=== PATIENT | male | born 1960 | race Caucasian/White ===

== ENCOUNTER → 2017-05-22 | Outpatient (CLI) | payer OTHER ==
--- NOTE | 2017-05-22 11:37 | RADIOLOGY REPORT (SQ) ---
EXAM DESCRIPTION: CT ABD/PELVIS WITH IV ONLY COMPLETED DATE/TIME: 05/22/2017 11:11 am REASON FOR STUDY: COLON CA C18.2 MALIGNANT NEOPLASM OF ASCENDING COLON COMPARISON: None. TECHNIQUE: CT scan of the abdomen and pelvis performed with intravenous and oral contrast using jaleesa juan scanning technique with dynamic intravenous contrast injection. Images reviewed with lung, soft t issue, and bone windows. Reconstructed coronal and sagittal MPR images reviewed. Delayed images for e valuation of the urinary system also acquired. All images stored on PACS. All CT scanners at this facility use dose modulation, iterative reconstruction, and/or weight based d osing when appropriate to reduce radiation dose to as low as reasonably achievable (ALARA). [facility]: Dose Right [facility]: CareDose [facility]: Dose Right [facility]: Teradose 4D [facility]: Materia CONTRAST TYPE AND DOSE: contrast/concentration: Isovue 370.00 mg/ml; Total Contrast Delivered: 91.0 ml; Total Saline Delivered: 70.0 ml RENAL FUNCTION: Creatinine 1 BUN 16 RADIATION DOSE: Up-to-date CT equipment and radiation dose reduction techniques were employed. CTDIv ol: 8.8 - 10.4 mGy. DLP: 1032 mGy-cm.. LIMITATIONS: None. FINDINGS: LOWER CHEST: No nodules or infiltrates. There is localized eventration of the right hemid iaphragm posteriorly containing fat. LIVER: There are surgical changes in the right lobe of the liver. No hepatic masses are seen. SPLEEN: Normal size. No focal lesions. PANCREAS: No masses. No significant calcifications. No adjacent inflammation or peripancreatic fluid collections. Pancreatic duct not dilated. GALLBLADDER: Surgically absent. ADRENAL GLANDS: No significant masses or asymmetry. RIGHT KIDNEY AND URETER: No solid masses. There is a nonobstructing intrarenal calculus in the lower pole. There is no hydronephrosis or hydroureter LEFT KIDNEY AND URETER: No solid masses. There are several nonobstructing intrarenal calculi includi ng an 8 mm upper calyceal calculus. There is no hydronephrosis or hydroureter. AORTA AND VESSELS: No aneurysm. No dissection. Renal arteries, SMA, celiac without stenosis. RETROPERITONEUM: No retroperitoneal adenopathy, hemorrhage or masses. BOWEL AND PERITONEAL CAVITY: Right colectomy changes are present. Surgical changes are present in th e stomach. APPENDIX: Surgically absent. PELVIS: The urinary bladder is normal. The prostate gland and seminal vesicles are unremarkable. ABDOMINAL WALL: There is what appears to be a prior ostomy site on the right. BONES: No metastases are seen. OTHER: None. IMPRESSION: 1. Right colectomy changes with apparent surgical changes the liver and in the stomach. 2. Nonobstructing intrarenal calculi as described. 3. There is no evidence of recurrence or metastasis. 4. There is eventration of right hemidiaphragm posteriorly, likely related to surgery. TECHNICAL DOCUMENTATION: JOB ID: [id number] Quality ID # [id number]: Final reports with documentation of one or more dose reduction techniques (e.g., Au tomated exposure control, adjustment of the mA and/or kV according to patient size, use of iterative reconstruction technique) 2010 [employer] All Rights Reserved
== END ==
LOC: RAD 10:07
PROVIDERS: ATTEND Internal Medicine
DX: C18.2 Malignant neoplasm of ascending colon (principal)
CPT/HCPCS: 74177

== ENCOUNTER → 2017-08-11 | Outpatient (CLI) | payer OTHER ==
--- NOTE | 2017-08-11 12:09 | RADIOLOGY REPORT (SQ) ---
EXAM DESCRIPTION: CT CHEST WITH; CT ABD/PELVIS WITH IV ONLY COMPLETED DATE/TIME: 08/11/2017 10:14 am REASON FOR STUDY: COLON CA (C18.2) C18.2 MALIGNANT NEOPLASM OF ASCENDING COLON CONTRAST TYPE AND DOSE: contrast/concentration: Isovue 370.00 mg/ml; Total Contrast Delivered: 90.0 ml; Total Saline Delivered: 70.0 ml RENAL FUNCTION: Creatinine 1 BUN 17 COMPARISON: CT abdomen and pelvis 05/22/2017 TECHNIQUE: CT scan of the chest performed using helical scanning technique with dynamic intravenous contrast injection. Images reviewed with lung, soft tissue and bone windows. Reconstructed coronal a nd sagittal MPR images reviewed. All images stored on PACS. All CT scanners at this facility use dose modulation, iterative reconstruction, and/or weight based d osing when appropriate to reduce radiation dose to as low as reasonably achievable (ALARA). [facility]: Dose Right [facility]: CareDose [facility]: Dose Right [facility]: Teradose 4D [facility]: PeopleMatter RADIATION DOSE: Up-to-date CT equipment and radiation dose reduction techniques were employed. CTDIv ol: 6.9 - 8.8 mGy. DLP: 1243 mGy-cm.. LIMITATIONS: None. FINDINGS: AXILLAE: No adenopathy. CHEST WALL: No masses. No subcutaneous air. LUNGS: Subsegmental atelectasis in the lingula. PLEURA: No effusion. No calcifications. There is a localized eventration right hemidiaphragm wire lather iorly that contains only fat. THYROID: No masses or significant asymmetry. HILAR AND MEDIASTINAL STRUCTURES: No identified masses or abnormal nodes. AORTA AND GREAT VESSELS: No aneurysm. No dissection. PULMONARY ARTERIES: No identified pulmonary emboli. Study not optimized for the pulmonary arteries. HEART: No pericardial effusion. HARDWARE AND LIFELINES: None. BONES: Thoracic spondylosis. No osseous metastases are suggested. OTHER: No other significant finding. IMPRESSION: 1. There is no evidence of metastatic disease in the chest. 2. Mild subsegmental atelectasis. 3. Thoracic spondylosis. COMPARISON: 05/22/2017 RADIATION DOSE: Up-to-date CT equipment and radiation dose reduction techniques were employed. CTDIv ol: 6.9 - 8.8 mGy. DLP: 1243 mGy-cm.mGy. TECHNIQUE: CT scan of the abdomen and pelvis performed with intravenous and oral contrast using jaleesa juan scanning technique with dynamic intravenous contrast injection. Images reviewed with lung, soft tissue and bone windows. Reconstructed coronal and sagittal MPR images reviewed. Delayed images for evaluation of the urinary system also acquired and evaluated. All images stored on PACS. All CT scanners at this facility use dose modulation, iterative reconstruction, and/or weight based d osing when appropriate to reduce radiation dose to as low as reasonably achievable (ALARA). [facility]: Dose Right [facility]: SureCare [facility]: Dose Right [facility]: Teradose 4D [facility]: PeopleMatter FINDINGS: LIVER: There is an ill-defined 3 cm area of decreased attenuation in the posterior aspect of the right lobe of the liver near the suture line. This appears to represent a change. This is se en on image 45 series 2 and on the sagittal series image 18. The liver is otherwise unremarkable. SPLEEN: Normal size. No focal lesions. PANCREAS: No significant abnormality GALLBLADDER: Not identified. ADRENAL GLANDS: Questionable 15 mm right adrenal nodule see image 20 series 3. RIGHT KIDNEY AND URETER: Normal size. No solid or suspicious masses. No significant calcifications. No hydronephrosis or hydroureter. LEFT KIDNEY AND URETER: Normal size. No solid or suspicious masses nonobstructing intrarenal calculi in the lower calices. No hydronephrosis or hydroureter AORTA AND VESSELS: No aneurysm. No dissection. Renal arteries, SMA, celiac without stenosis. RETROPERITONEUM: No retroperitoneal adenopathy, hemorrhage or masses. LARGE AND SMALL BOWEL: Surgical changes stomach. Partial colectomy. APPENDIX: Not identified. ABDOMINAL WALL: No hernia or masses. PERITONEAL CAVITY: No free air. No free fluid. No peritoneal implants or masses. PELVIS: No mass or free fluid. Normal bladder. BONES: Lower lumbar degenerative disc changes and spondylosis OTHER: No other significant finding. IMPRESSION: 1. There is an ill-defined area of decreased attenuation in the posterior aspect of the right lobe liver near the suture lie. This appears to represent a change. Cannot exclude recurrent or metastatic disease. 2. Right adrenal nodule that appears to be new. 3. Nonobstructing renal calculi. 4. Osseous findings as described. There are no osseous metastases. TECHNICAL DOCUMENTATION: JOB ID: [id number] Quality ID # 436: Final reports with documentation of one or more dose reduction techniques (e.g., Au tomated exposure control, adjustment of the mA and/or kV according to patient size, use of iterative reconstruction technique) 2010 [employer]- All Rights Reserved
--- NOTE | 2017-08-11 12:09 | RADIOLOGY REPORT (SQ) ---
EXAM DESCRIPTION: CT CHEST WITH; CT ABD/PELVIS WITH IV ONLY COMPLETED DATE/TIME: 08/11/2017 10:14 am REASON FOR STUDY: COLON CA (C18.2) C18.2 MALIGNANT NEOPLASM OF ASCENDING COLON CONTRAST TYPE AND DOSE: contrast/concentration: Isovue 370.00 mg/ml; Total Contrast Delivered: 90.0 ml; Total Saline Delivered: 70.0 ml RENAL FUNCTION: Creatinine 1 BUN 17 COMPARISON: CT abdomen and pelvis 05/22/2017 TECHNIQUE: CT scan of the chest performed using helical scanning technique with dynamic intravenous contrast injection. Images reviewed with lung, soft tissue and bone windows. Reconstructed coronal a nd sagittal MPR images reviewed. All images stored on PACS. All CT scanners at this facility use dose modulation, iterative reconstruction, and/or weight based d osing when appropriate to reduce radiation dose to as low as reasonably achievable (ALARA). [facility]: Dose Right [facility]: CareDose [facility]: Dose Right [facility]: Teradose 4D [facility]: RuffaloCODY RADIATION DOSE: Up-to-date CT equipment and radiation dose reduction techniques were employed. CTDIv ol: 6.9 - 8.8 mGy. DLP: 1243 mGy-cm.. LIMITATIONS: None. FINDINGS: AXILLAE: No adenopathy. CHEST WALL: No masses. No subcutaneous air. LUNGS: Subsegmental atelectasis in the lingula. PLEURA: No effusion. No calcifications. There is a localized eventration right hemidiaphragm brim buster iorly that contains only fat. THYROID: No masses or significant asymmetry. HILAR AND MEDIASTINAL STRUCTURES: No identified masses or abnormal nodes. AORTA AND GREAT VESSELS: No aneurysm. No dissection. PULMONARY ARTERIES: No identified pulmonary emboli. Study not optimized for the pulmonary arteries. HEART: No pericardial effusion. HARDWARE AND LIFELINES: None. BONES: Thoracic spondylosis. No osseous metastases are suggested. OTHER: No other significant finding. IMPRESSION: 1. There is no evidence of metastatic disease in the chest. 2. Mild subsegmental atelectasis. 3. Thoracic spondylosis. COMPARISON: 05/22/2017 RADIATION DOSE: Up-to-date CT equipment and radiation dose reduction techniques were employed. CTDIv ol: 6.9 - 8.8 mGy. DLP: 1243 mGy-cm.mGy. TECHNIQUE: CT scan of the abdomen and pelvis performed with intravenous and oral contrast using jaleesa juan scanning technique with dynamic intravenous contrast injection. Images reviewed with lung, soft tissue and bone windows. Reconstructed coronal and sagittal MPR images reviewed. Delayed images for evaluation of the urinary system also acquired and evaluated. All images stored on PACS. All CT scanners at this facility use dose modulation, iterative reconstruction, and/or weight based d osing when appropriate to reduce radiation dose to as low as reasonably achievable (ALARA). [facility]: Dose Right [facility]: SureCare [facility]: Dose Right [facility]: Teradose 4D [facility]: RuffaloCODY FINDINGS: LIVER: There is an ill-defined 3 cm area of decreased attenuation in the posterior aspect of the right lobe of the liver near the suture line. This appears to represent a change. This is se en on image 45 series 2 and on the sagittal series image 18. The liver is otherwise unremarkable. SPLEEN: Normal size. No focal lesions. PANCREAS: No significant abnormality GALLBLADDER: Not identified. ADRENAL GLANDS: Questionable 15 mm right adrenal nodule see image 20 series 3. RIGHT KIDNEY AND URETER: Normal size. No solid or suspicious masses. No significant calcifications. No hydronephrosis or hydroureter. LEFT KIDNEY AND URETER: Normal size. No solid or suspicious masses nonobstructing intrarenal calculi in the lower calices. No hydronephrosis or hydroureter AORTA AND VESSELS: No aneurysm. No dissection. Renal arteries, SMA, celiac without stenosis. RETROPERITONEUM: No retroperitoneal adenopathy, hemorrhage or masses. LARGE AND SMALL BOWEL: Surgical changes stomach. Partial colectomy. APPENDIX: Not identified. ABDOMINAL WALL: No hernia or masses. PERITONEAL CAVITY: No free air. No free fluid. No peritoneal implants or masses. PELVIS: No mass or free fluid. Normal bladder. BONES: Lower lumbar degenerative disc changes and spondylosis OTHER: No other significant finding. IMPRESSION: 1. There is an ill-defined area of decreased attenuation in the posterior aspect of the right lobe liver near the suture lie. This appears to represent a change. Cannot exclude recurrent or metastatic disease. 2. Right adrenal nodule that appears to be new. 3. Nonobstructing renal calculi. 4. Osseous findings as described. There are no osseous metastases. TECHNICAL DOCUMENTATION: JOB ID: [id number] Quality ID # 436: Final reports with documentation of one or more dose reduction techniques (e.g., Au tomated exposure control, adjustment of the mA and/or kV according to patient size, use of iterative reconstruction technique) 2010 [employer]- All Rights Reserved
== END ==
LOC: RAD 09:31
PROVIDERS: ATTEND Internal Medicine
DX: C18.2 Malignant neoplasm of ascending colon (principal)
CPT/HCPCS: 71260; 74177

== ENCOUNTER → 2017-08-22 | Outpatient (CLI) | payer OTHER ==
--- NOTE | 2017-08-23 11:12 | RADIOLOGY REPORT (SQ) ---
EXAM DESCRIPTION: PET CT SKULL/THIGH COMPLETED DATE/TIME: 08/22/2017 9:04 pm REASON FOR STUDY: C18.2 MALIGNANT NEOPLASM OF ASCENDING COLON C18.2 MALIGNANT NEOPLASM OF ASCENDING COLON COMPARISON: CT chest abdomen pelvis 08/11/2017 CT angio chest 05/22/2017 RADIONUCLIDE AND DOSE: 11.1 mCi F18 FDG The route of agent administration: Intravenous FASTING BLOOD SUGAR: 76 mg/dl CONTRAST TYPE AND DOSE: No CT contrast given. TECHNIQUE: Blood glucose level was verified. Above dose of FDG was injected intravenously. 2-D seg mented attenuation correction images were obtained from the base of the skull to the midthighs. Nonc ontrast CT images were obtained for attenuation correction and fusion with emission images. CT image s were performed without oral or intravenous contrast and are not sensitive for parenchymal lesions. A series of overlapping emission PET images were obtained. Images reviewed and manipulated at [facility] work station by the radiologist. Images stored on PACS. LIMITATIONS: None. FINDINGS: HEAD AND NECK: No areas of abnormal metabolic activity in the soft tissues of the head and neck. CHEST: No areas of abnormal metabolic activity in the chest. ABDOMEN AND PELVIS: Patient is post resection of a portion of the right lobe liver for metastatic col on cancer. Just ventral to the staple line, a 4.5 x 4 cm hypodense mass is present on axial image 10 8 with a peripheral rim of increased metabolic activity, SUV 8.7. Chest under the right hemidiaphragm, of a 2 cm area of decreased attenuation present in the right lob e liver sub- diaphragmatic surface image 98. This has SUV of 3.0 and is worrisome for a second small er area of recurrence. Consider liver MRI for further characterization. There is bandlike increased uptake along the right hemicolectomy staple line with SUV of 5.9. No wel l-circumscribed mass. This may be physiologic rather than tumor recurrence along the right colon. PROXIMAL LOWER EXTREMITIES: No areas of abnormal metabolic activity in the soft tissues of the lower extremities. BONES: No abnormal metabolic activity in the visualized skeleton. ADDITIONAL CT FINDINGS: Left maxillary sinus mucus or serous retention cysts. Surgical clips post ga stric bypass, resection right posterior lobe liver, and right partial colectomy. Post cholecystectom y. Cervical spine fusion. Gynecomastia. Bandlike scarring or atelectasis in the lingula unchanged from CT chest 08/11/2017 OTHER: Liver background activity SUV 2.1. Blood pool background activity SUV 1.3 IMPRESSION: Soft tissue mass along the right lobe liver staple line hypermetabolic worrisome for billy or recurrence. A smaller area of increased liver metabolic activity is present in the right lobe liver subdiaphragma tic surface. MRI of of the liver would be useful for further characterization of this finding TECHNICAL DOCUMENTATION: JOB ID: [id number] [employer]- All Rights Reserved
== END ==
LOC: RAD 15:32
PROVIDERS: ATTEND Internal Medicine
DX: C18.2 Malignant neoplasm of ascending colon (principal)
CPT/HCPCS: 78815; A9552

== ENCOUNTER 2017-09-07 09:29 | Inpatient (IN) | payer OTHER ==
--- NOTE | 2017-09-07 09:37 | ER Document Report ---
ED General - General Chief Complaint: Altered Mental Status Stated Complaint: WEAKNESS Time Seen by Provider: 09/07/17 09:32 Notes: 57-year-old male with a history of recurrent colon cancer not on chemotherapy, a patient of Dr. Parker, who is brought in by EMS last seen normal last night woke up with altered mental status only able to say his name. Per EMS nonfocal but depressed mental status. Vital signs normal. Hypothermic. Patient cannot give a history. He was recently started on pain medication but appears to be taking a normal amount of this. Paramedics did not see any lateralizing neuro deficits and the blood sugar was normal. There is no other information available at this time. TRAVEL OUTSIDE OF THE [place] IN LAST 30 DAYS: No - Related Data Allergies/Adverse Reactions: No Known Allergies Allergy (Verified 09/07/17 12:26) Home Medications: Current Home Medications Ondansetron HCl [Zofran 8 mg Tablet] 8 mg PO Q8HP PRN 09/07/17 [History] Oxycodone HCl [Oxy-Ir 5 mg Tablet] 5 mg PO Q4HP PRN 09/07/17 [History] Pantoprazole Sodium [Protonix] 40 mg PO DAILY 09/07/17 [History] Potassium Chloride [Klor-Con 10 Meq Tablet.sa] 40 meq PO DAILY 09/07/17 [History ] Tamsulosin HCl [Flomax 0.4 mg Cap.sr] 0.4 mg PO DAILY 09/07/17 [History] Past Medical History - General Information source: Emergency Med Personnel - Social History Smoking Status: Former Smoker Family History: None Review of Systems - Review of Systems Notes: REVIEW OF SYSTEMS Unable to obtain secondary to mental status PHYSICAL EXAMINATION General: Appears in distress, staring off Head: Atraumatic, normocephalic ENT: Mouth normal, oropharynx moist, no exudates or tonsillar enlargement Eyes: Conjunctiva mildly injected on the right, query proptosis, pupils equal, lids normal. Positive blink to threat bilaterally Neck: No JVD, supple, no guarding CVS: Normal rate, regular rhythm, no murmurs Resp: No resp distress, equal and normal breath sounds bilaterally GI: Nondistended, soft, no tenderness to palpation, no rebound or guarding. Multiple healed abdominal incisions. Ext: No deformities, no edema, normal range of motion in upper and lower ext Back: No CVA or midline TTP Skin: No rash, warm Lymphatic: No lymphadeopathy noted Neuro: Awake, alert. Face symmetric. Oriented to name only. Answers all questions using only his name. Does not follow commands. Resists IV placement monitor placement strongly with all 4 extremities. Slightly increased muscle tone. Fasciculations. Physical Exam - Vital signs Vitals: Resp Pulse Ox 26 H 99 09/07/17 09:34 09/07/17 09:34 Course - Re-evaluation Re-evalutation: 09/07/17 09:35 Critically ill patient seen immediately by me on arrival. Altered mental status in the setting of known colon cancer. Normal glucose and vital signs except for hypothermia. Differential includes hypothermia, hypothyroid, sepsis , brain metastases with edema, hepatic encephalopathy, other metabolic encephalopathy, med effect. Patient will get a stat CT scan and basic labs including sepsis workup. We will withhold antibiotics for now but strongly consider giving them if I find no other reason for his mental status changes. I considered nonconvulsive status epilepticus however the patient is able to respond to my questions. He has no lateralizing deficits concerning for an acute stroke. 09/07/17 10:33 Reassessed at 10:30 AM. Still altered but slightly better. My read of the head CT shows no major issues or bleeding. Labs are returning, and they all look normal. Ammonia pending. Will go for admission. 09/07/17 10:54 Labs show slightly low platelets otherwise normal including LFTs. Ammonia is pending. Urine is pending. At this time is still no sign of infection given normal chest x-ray. His head CT looks normal. I reassessed him at 1055 and he is slightly more awake now oriented to place but still far from his baseline. He was discussed with Dr. Arce from hospitalist service who will admit. 09/07/17 11:43 Patient's ammonia is elevated. Ordered lactulose. Urine is negative, doubt infection. - Vital Signs Vital signs: Temp Pulse Resp BP Pulse Ox 99.2 F 22 H 137/69 H 96 09/07/17 15:01 09/07/17 15:01 09/07/17 15:01 09/07/17 15:01 - Laboratory Result Diagrams: 09/07/17 09:34 09/07/17 09:34 Laboratory results interpreted by me: 09/07/17 09/07/17 09/07/17 09:34 09:34 09:52 RBC 4.12 L Plt Count 90 L Seg Neutrophils % 81.3 H Lymphocytes % 11.4 L Chloride 113 H Carbon Dioxide 16 L Glucose 121 H Total Bilirubin 3.5 H Direct Bilirubin 0.9 H Alkaline Phosphatase 271 H Ammonia 137.9 H Urine Ketones 09/07/17 10:45 RBC Plt Count Seg Neutrophils % Lymphocytes % Chloride Carbon Dioxide Glucose Total Bilirubin Direct Bilirubin Alkaline Phosphatase Ammonia Urine Ketones 20 H - Diagnostic Test Radiology reviewed: Image reviewed, Reports reviewed - EKG Interpretation by Me EKG shows normal: Sinus rhythm Rate: Normal Rhythm: APC's When compared to previous EKG there are: Previous EKG unavailable - No ST or T- wave changes Critical Care Note - Critical Care Note Total time excluding time spent on procedures (mins): 40 Comments: The above patient is critically ill. Not including procedures, but including direct re-evaluations, speaking with patient and/or consultants, interpreting results, and documenting, I spent the total amount of minute listed listed above on critical care time Discharge - Discharge Clinical Impression: Acute encephalopathy Clinical Impression: (Ruled Out): Encephalopathy Condition: Fair Disposition: ADMITTED INPATIENT Admitting Provider: Hospitalist Unit Admitted: Medical Floor
[2017-09-07 09:58] LABS: ABSOLUTE EOSINOPHILS # (AUTO) 0.1 10^3/uL (0.0-0.6); ABSOLUTE LYMPHOCYTES (AUTO) 0.9 10^3/uL (0.5-4.7); ABSOLUTE MONOCYTES (AUTO) 0.4 10^3/uL (0.1-1.4); ABSOLUTE NEUT (AUTO) 6.1 10^3/uL (1.7-8.2); BASOPHILS % (AUTO) 0.3 % (0-2); HEMATOCRIT 39.5 % (37.9-51.0); HEMOGLOBIN 13.5 g/dL (13.5-17.0); LYMPHOCYTES % (AUTO) 11.4 % (13-45); MEAN CORPUSCULAR HEMOGLOBIN 32.6 pg (27.0-33.4); MEAN CORPUSCULAR HGB CONC 34.1 g/dL (32.0-36.0); MEAN CORPUSCULAR VOLUME 96 fl (80-97); RED BLOOD COUNT 4.12 10^6/uL (4.35-5.55); RED CELL DISTRIBUTION WIDTH 13.8 % (11.5-14.0); SEGMENTED NEUTROPHILS % (AUTO) 81.3 % (42-78); WHITE BLOOD COUNT 7.5 10^3/uL (4.0-10.5)
[2017-09-07 10:20] LABS: ALANINE AMINOTRANSFERASE 52 U/L (21-72); ALBUMIN 4.1 g/dL (3.5-5.0); ALKALINE PHOSPHATASE 271 U/L (38-126); ANION GAP 15 (5-19); ASPARTATE AMINO TRANSFERASE 47 U/L (17-59); BILIRUBIN,DIRECT 0.9 mg/dL (0.0-0.4); BILIRUBIN,TOTAL 3.5 mg/dL (0.2-1.3); BLOOD UREA NITROGEN 16 mg/dL (7-20); CALCIUM 9.1 mg/dL (8.4-10.2); CARBON DIOXIDE 16 mmol/L (22-30); CHLORIDE 113 mmol/L (98-107); CREATININE RESULT 0.98 mg/dL (0.52-1.25); GLUCOSE 121 mg/dL (75-110); SODIUM 144.4 mmol/L (137-145); TOTAL PROTEIN 7.4 g/dL (6.3-8.2)
--- NOTE | 2017-09-07 10:34 | RADIOLOGY REPORT (SQ) ---
EXAM DESCRIPTION: CHEST SINGLE VIEW COMPLETED DATE/TIME: 09/07/2017 10:22 am REASON FOR STUDY: AMS r/o infilt COMPARISON: None. EXAM PARAMETERS: NUMBER OF VIEWS: One view. TECHNIQUE: Single frontal radiographic view of the chest acquired. RADIATION DOSE: NA LIMITATIONS: None. FINDINGS: LUNGS AND PLEURA: Low lung volumes. Faint basilar densities, atelectasis versus infiltrat e. No pleural effusion. No pneumothorax. MEDIASTINUM AND HILAR STRUCTURES: No masses. Contour normal. HEART AND VASCULAR STRUCTURES: Heart normal in size. Normal vasculature. BONES: No acute findings. HARDWARE: Hardware in the spine. OTHER: No other significant finding. IMPRESSION: LOW LUNG VOLUMES. FAINT BASILAR DENSITIES SECONDARY TO ATELECTASIS VERSUS INFILTRATE. TECHNICAL DOCUMENTATION: JOB ID: [id number] [employer]- All Rights Reserved
--- NOTE | 2017-09-07 11:17 | RADIOLOGY REPORT (SQ) ---
EXAM DESCRIPTION: CT HEAD WITHOUT COMPLETED DATE/TIME: 09/07/2017 10:57 am REASON FOR STUDY: CA, AMS, r/o mets/edema COMPARISON: None. TECHNIQUE: Axial images acquired through the brain without intravenous contrast. Images reviewed wi th bone, brain and subdural windows. Images stored on PACS. All CT scanners at this facility use dose modulation, iterative reconstruction, and/or weight based d osing when appropriate to reduce radiation dose to as low as reasonably achievable (ALARA). [facility]: Dose Right [facility]: CareDose [facility]: Dose Right [facility]: Teradose 4D [facility]: Netasq RADIATION DOSE: CT Rad equipment meets quality standard of care and radiation dose reduction techniq ues were employed. CTDIvol: 49.0 mGy. DLP: 1566 mGy-cm. mGy. LIMITATIONS: None. FINDINGS: VENTRICLES: Normal size and contour. CEREBRUM: No masses. No hemorrhage. No midline shift. No evidence for acute infarction. Normal gra y/white matter differentiation. No areas of low density in the white matter. CEREBELLUM: No masses. No hemorrhage. No alteration of density. No evidence for acute infarction. EXTRAAXIAL SPACES: No fluid collections. No masses. ORBITS AND GLOBE: No intra- or extraconal masses. Normal contour of globe without masses. CALVARIUM: No fracture. PARANASAL SINUSES: Mucous retention cysts are present in the left maxillary sinus. SOFT TISSUES: No mass or hematoma. OTHER: No other significant finding. IMPRESSION: Left maxillary sinus disease with no acute intracranial findings. There is no evidence of metastases in the brain. EVIDENCE OF ACUTE STROKE: NO. COMMENT: Quality ID # [id number]: Final reports with documentation of one or more dose reduction techniques (e.g., Automated exposure control, adjustment of the mA and/or kV according to patient size, use of iterative reconstruction technique) TECHNICAL DOCUMENTATION: JOB ID: [id number] [employer]- All Rights Reserved
[2017-09-07 11:19] LABS: APPEARANCE,URINE CLEAR; BILIRUBIN,URINE NEGATIVE (NEGATIVE); GLUCOSE, URINE NEGATIVE (NEGATIVE); KETONES,URINE 20 mg/dL (NEGATIVE); LEUKOCYTE ESTERASE,URINE NEGATIVE (NEGATIVE); NITRITE,URINE NEGATIVE (NEGATIVE); PROTEIN,URINE NEGATIVE (NEGATIVE); URINE SPECIFIC GRAVITY 1.023; UROBILINOGEN,URINE NEGATIVE mg/dL (<2.0)
[2017-09-07] MEDS ORDERED: LACTULOSE SYRUP 20 GM/30 ML UDCUP PO ONE (11:43)
[2017-09-07] MEDS ORDERED: DEXTROSE 50%-WATER 25 GM/50 ML DISP.SYRIN IV PRN ×2 (12:12)
[2017-09-07] MEDS ORDERED: ACETAMINOPHEN 325 MG TABLET PO PRN (12:12)
[2017-09-07] MEDS ORDERED: GLUCAGON,HUMAN RECOMB 1 MG INJ SUBCUT PRN (12:12)
[2017-09-07] MEDS ORDERED: DEXTROSE 40% GEL 15 GM TUBE PO PRN ×2 (12:12)
[2017-09-07] MEDS ORDERED: ONDANSETRON 4 MG TAB.RAPDIS PO PRN (12:12)
--- NOTE | 2017-09-07 12:30 | PDOC H&P ---
History of Present Illness Admission Date/PCP: 09/07/17 11:23 ARIAN KASPER MD Patient complains of: Brought in by the because of confusion. History of Present Illness: NATALY NGUYEN is a 57 year old male who has a history of metastatic colon cancer and history of a right sided liver resection who presents with confusion. The patient's reports that he was in his normal state of health yesterday evening when he went to bed. This morning when she tried to wake him he was confused. He was unable to get out of bed because of weakness. At the time my exam the patient is unable to give any history. She reports that he has not had any fevers or chills. He does not drink. He was recently started on pain medication by his oncologist because of worsening abdominal pain. Patient denies any pain but on exam he does have left lower quadrant abdominal pain. He has had had multiple abdominal surgeries including liver resection, cholecystectomy, gastric bypass, and a right partial colectomy. The patient prior to today had been eating normally and had no problems. He has not had any dysuria or other problems. He does not normally use lactulose but he was noted to have an elevated ammonia today. Past Medical History Cardiac Medical History: Reports: None Pulmonary Medical History: Reports: None EENT Medical History: Reports: None Neurological Medical History: Reports: None Endocrine Medical History: Reports: None Renal/ Medical History: Reports: None Malignancy Medical History: Reports: Colorectal Cancer GI Medical History: Reports: Other - Colon cancer that is metastatic to the liver Musculoskeltal Medical History: Reports: None Skin Medical History: Reports: None Psychiatric Medical History: Reports: None Traumatic Medical History: Reports: None Hematology: Reports: None Infectious Medical History: Reports: None Past Surgical History Past Surgical History: Reports: Cholecystectomy, Gastric Bypass Surgery, Orthopedic Surgery - C-spine fusion, Other - Right partial colectomy, right liver resection for metastatic disease Social History Information Source: Relative Lives with: Spouse/Significant other Smoking Status: Never Smoker Frequency of Alcohol Use: None Hx Recreational Drug Use: No Drugs: None Hx Prescription Drug Abuse: No - Advance Directive Resuscitation Status: Full Code Surrogate healthcare decision maker:: Family History Family History: Father is 91 alive and has diabetes and heart disease. Mother is in her late 80s alive and also has diabetes and heart disease. Parental Family History Reviewed: Yes Children Family History Reviewed: No Sibling(s) Family History Reviewed.: No Medication/Allergy Home Medications: Ondansetron HCl [Zofran 8 mg Tablet] 8 mg PO Q8HP PRN 09/07/17 Oxycodone HCl [Oxy-Ir 5 mg Tablet] 5 mg PO Q4HP PRN 09/07/17 Pantoprazole Sodium [Protonix] 40 mg PO DAILY 09/07/17 Potassium Chloride [Klor-Con 10 Meq Tablet.sa] 40 meq PO DAILY 09/07/17 Tamsulosin HCl [Flomax 0.4 mg Cap.sr] 0.4 mg PO DAILY 09/07/17 Review of Systems ROS unobtainable: Due to mental status Physical Exam Vital Signs: Temp Pulse Resp BP Pulse Ox 98.3 F 23 H 146/74 H 99 09/07/17 12:01 09/07/17 12:01 09/07/17 12:01 09/07/17 12:01 General appearance: PRESENT: no acute distress Head exam: PRESENT: atraumatic, normocephalic Eye exam: PRESENT: conjunctiva pink, EOMI, PERRLA. ABSENT: scleral icterus Mouth exam: PRESENT: moist, tongue midline Neck exam: ABSENT: carotid bruit, JVD, lymphadenopathy, thyromegaly Respiratory exam: PRESENT: clear to auscultation yu. ABSENT: rales, rhonchi, wheezes Cardiovascular exam: PRESENT: RRR. ABSENT: diastolic murmur, rubs, systolic murmur Pulses: PRESENT: normal dorsalis pedis pul GI/Abdominal exam: PRESENT: normal bowel sounds, soft, tenderness - Left lower quadrant tenderness. ABSENT: distended, guarding, mass, organolmegaly, rebound Rectal exam: PRESENT: deferred Extremities exam: ABSENT: calf tenderness, clubbing, pedal edema Neurological exam: PRESENT: altered, awake Psychiatric exam: PRESENT: flat affect Skin exam: PRESENT: dry, intact, warm. ABSENT: cyanosis, rash Results Impressions: Chest X-Ray 09/07/17 09:32 IMPRESSION: LOW LUNG VOLUMES. FAINT BASILAR DENSITIES SECONDARY TO ATELECTASIS VERSUS INFILTRATE. Head CT 09/07/17 09:32 IMPRESSION: Left maxillary sinus disease with no acute intracranial findings. There is no evidence of metastases in the brain. EVIDENCE OF ACUTE STROKE: NO. Assessment & Plan - Diagnosis (1) Acute encephalopathy Is this a current diagnosis for this admission?: Yes Plan: The patient has an elevated ammonia and most likely has hepatic encephalopathy as the cause. He has no history of alcohol abuse or liver disease but has had a partial liver resection for metastatic disease. Case was discussed with his oncologist and we will check an LDH and haptoglobin. Will treat with lactulose and monitor closely. Given his left lower quadrant pain I am concerned about the possibility of an intra-abdominal infection although his white count is normal. Will treat with Cipro and Flagyl. (2) Colon cancer Is this a current diagnosis for this admission?: Yes Plan: We will consult oncology. - Time Time Spent: 50 to 70 Minutes - Inpatient Certification Medical Necessity: Need Close Monitoring Due to Risk of Patient Decompensation
--- NOTE | 2017-09-07 12:34 | EKG REPORT ---
SEVERITY:- BORDERLINE ECG - SINUS RHYTHM ATRIAL PREMATURE COMPLEX BORDERLINE T ABNORMALITIES, INFERIOR LEADS : Confirmed by: Farhad Skelton 07-Sep-2017 12:33:42
[2017-09-07] MEDS ORDERED: LIDOCAINE 2% JELLY 5 ML TUBE TOP ONE (12:44)
[2017-09-07] MEDS ORDERED: CIPROFLOXACIN 400 MG/D5W RTU 400 MG/200 ML RTUPB IV ONE (13:30)
[2017-09-07] MEDS: NORMAL SALINE 1000 ML 1,000 ML IV PRN (16:27)
[2017-09-07 16:51] LABS: URINE BARBITURATES SCREEN NEGATIVE; URINE METHADONE SCREEN NEGATIVE; URINE OPIATES LOW NEGATIVE; URINE PHENCYCLIDINE SCREEN NEGATIVE
[2017-09-07] MEDS: METRONIDAZOLE 500 MG/NS RTU 100 ML IV SCH ×2 (16:55→21:55)
[2017-09-07] MEDS: LACTULOSE SYRUP 20 GM/30 ML UDCUP PO SCH (18:30)
[2017-09-07] MEDS ORDERED: LORAZEPAM INJ 2 MG/1 ML VIAL IV ONE (21:00)
[2017-09-07] MEDS: CIPROFLOXACIN 400 MG/D5W RTU 400 MG/200 ML RTUPB IV SCH (23:30)
[2017-09-08] MEDS ORDERED: LORAZEPAM INJ 2 MG/1 ML VIAL IV ONE (00:30)
[2017-09-08] MEDS ORDERED: MORPHINE SULFATE 10 MG/ML INJ IV ONE ×2 (01:00→05:00)
[2017-09-08] MEDS: LACTULOSE SYRUP 20 GM/30 ML UDCUP PO SCH ×5 (03:39→23:32)
[2017-09-08] MEDS: METRONIDAZOLE 500 MG/NS RTU 100 ML IV SCH ×4 (03:42→21:40)
[2017-09-08] MEDS ORDERED: LACTULOSE SYRUP 20 GM/30 ML UDCUP PR ONE (04:15)
[2017-09-08] MEDS ORDERED: LACTULOSE SYRUP 20 GM/30 ML UDCUP ONE (05:11)
--- NOTE | 2017-09-08 07:51 | PDOC CONSULTATION ---
Consultation Consult Date: 09/08/17 Attending physician:: TERRENCE Stokes BUSTEED Consult reason:: Pt w known history of stage IV colon cancer, recent progressive disease with 2 large lesions in the liver, now with hepatic encephalopathy History of Present Illness Admission Date/PCP: 09/07/17 11:23 ARIAN KASPER MD Patient complains of: Brought in with confusion, obtunded History of Present Illness: 57-year-old male well-known to our oncology clinic, he was originally noted about 3-4 years ago with stage II colon cancer, at that time there was a 1.3 cm lesion in the left lobe of the liver, that lesion was attempted to have biopsy, but the biopsy was negative, and ultimately he was watched for some time then lost to follow-up. Then in 2014 he began having abdominal pain, he had imaging done and in the left lobe of liver he now had a 15 cm lesion. He was seen in [place] by the cancer treatment centers of [facility], and initially had induction chemotherapy with XELOX had a good response then had primary liver resection. Unfortunately, after liver resection he had a very complicated course, was in intensive care for nearly 3-4 weeks and then in rehab for about 6 months thereafter. He got back on his feet and post surgery imaging indicated no evidence of disease. He came into our clinic about 6 months ago, and initial imaging done in May showed no evidence of disease. Recently we had imaging done in July, so 3 months from previous imaging, and unfortunately this indicated a 3-4 cm lesion at the resection site. This is followed by PET/CT which now indicated a 6-7 cm lesion at that resection site but another lesion that was about 3 cm as well. Both had SUV uptake. We were then going to recommend reinitiation of salvage chemotherapy with FOLFIRI + AVASTIN, but patient wanted a second opinion, so we did set him up to see Dr. Radha Jason of the [facility] GI oncology program, I also discussed his case personally with her, and I believe she was supposed to see him either this week or next week. He came into our office this past Monday and he was having increased pain in the right upper quadrant, consistent with the progression of disease that he had , we started him on oxycodone, and he seemed to be doing a little bit better until about 24 hours ago, he began becoming confused, and ultimately was very lethargic, he was brought by his here to the ED and he was combative confused, ammonia was 137, bilirubin was 3.5. In our office the bilirubin was in the 2 range. And prior to that in May it was normal. Past Medical History Cardiac Medical History: Reports: None Pulmonary Medical History: Reports: None EENT Medical History: Reports: None Neurological Medical History: Reports: None Endocrine Medical History: Reports: None Renal/ Medical History: Reports: None Malignancy Medical History: Reports: Colorectal Cancer GI Medical History: Reports: Other - Colon cancer that is metastatic to the liver Musculoskeltal Medical History: Reports: None Skin Medical History: Reports: None Psychiatric Medical History: Reports: None Traumatic Medical History: Reports: None Hematology: Reports: None Infectious Medical History: Reports: None Past Surgical History Past Surgical History: Reports: Cholecystectomy, Gastric Bypass Surgery, Orthopedic Surgery - C-spine fusion, Other - Right partial colectomy, right liver resection for metastatic disease Social History Information Source: Relative Lives with: Spouse/Significant other Smoking Status: Never Smoker Frequency of Alcohol Use: None Hx Recreational Drug Use: No Drugs: None Hx Prescription Drug Abuse: No - Advance Directive Resuscitation Status: Full Code Family History Family History: None Parental Family History Reviewed: Yes Children Family History Reviewed: Yes Sibling(s) Family History Reviewed.: Yes Medication/Allergy Home Medications: Ondansetron HCl [Zofran 8 mg Tablet] 8 mg PO Q8HP PRN 09/07/17 Oxycodone HCl [Oxy-Ir 5 mg Tablet] 5 mg PO Q4HP PRN 09/07/17 Pantoprazole Sodium [Protonix] 40 mg PO DAILY 09/07/17 Potassium Chloride [Klor-Con 10 Meq Tablet.sa] 40 meq PO DAILY 09/07/17 Tamsulosin HCl [Flomax 0.4 mg Cap.sr] 0.4 mg PO DAILY 09/07/17 Allergies/Adverse Reactions: No Known Allergies Allergy (Verified 09/07/17 12:26) Review of Systems ROS unobtainable: Due to mental status Physical Exam Vital Signs: Temp Pulse Resp BP Pulse Ox 99.7 F 79 18 148/72 H 98 09/08/17 04:04 09/08/17 07:00 09/08/17 04:04 09/08/17 04:04 09/08/17 04:04 Intake & Output 09/07/17 09/08/17 09/09/17 06:59 06:59 06:59 Intake Total 2100 Output Total 525 Balance 1575 Weight 80.2 kg General appearance: PRESENT: disheveled Mouth exam: PRESENT: dry mucosa Neck exam: ABSENT: carotid bruit, JVD, lymphadenopathy, thyromegaly Respiratory exam: PRESENT: clear to auscultation yu. ABSENT: rales, rhonchi, wheezes Cardiovascular exam: PRESENT: RRR. ABSENT: diastolic murmur, rubs, systolic murmur Pulses: PRESENT: normal dorsalis pedis pul GI/Abdominal exam: PRESENT: soft Rectal exam: PRESENT: deferred Neurological exam: PRESENT: altered - Confused, combative, other Results Impressions: Chest X-Ray 09/07/17 09:32 IMPRESSION: LOW LUNG VOLUMES. FAINT BASILAR DENSITIES SECONDARY TO ATELECTASIS VERSUS INFILTRATE. Head CT 09/07/17 09:32 IMPRESSION: Left maxillary sinus disease with no acute intracranial findings. There is no evidence of metastases in the brain. EVIDENCE OF ACUTE STROKE: NO. Assessment & Plan - Diagnosis (1) Acute encephalopathy Is this a current diagnosis for this admission?: Yes Plan: Patient with hepatic encephalopathy, agree with lactulose therapy, will need to be aggressive with this through the weekend, he has not yet had a large BM. He still very confused. Likely related to the liver lesion causing blockage, and dysfunction of excretion of ammonia. (2) Colon cancer Qualifiers: Colon location: splenic flexure Qualified Code(s): C18.5 - Malignant neoplasm of splenic flexure Is this a current diagnosis for this admission?: Yes Plan: Stage IV colon cancer, patient was can have a second opinion at [facility] but most likely was going to have chemotherapy in our office, after they decided. So we still want to be very aggressive with this patient. (3) Thrombocytopenia Is this a current diagnosis for this admission?: Yes Plan: Probably related to liver dysfunction, he may have some DIC ongoing, LDH and haptoglobin is pending. - Time Time Spent: Greater than 70 Minutes - Inpatient Certification Based on my medical assessment, after consideration of the patient's comorbidities, presenting symptoms, or acuity I expect that the services needed warrant INPATIENT care.: Yes I certify that my determination is in accordance with my understanding of Medicare's requirements for reasonable and necessary INPATIENT services [42 CFR 412.3e].: Yes Medical Necessity: Need For Continuous Telemetry Monitoring, Need for Neurological Checks, Risk of Complication if Not Cared For in Hospital
[2017-09-08] MEDS: ONDANSETRON HCL INJ/PF 4 MG/2 ML SDV IV PRN ×3 (08:10→20:39)
[2017-09-08] MEDS ORDERED: ENOXAPARIN SODIUM INJ 40 MG/0.4 ML DISP.SYRIN SUBCUT SCH (10:00)
[2017-09-08] MEDS: CIPROFLOXACIN 400 MG/D5W RTU 400 MG/200 ML RTUPB IV SCH ×2 (10:04→22:59)
[2017-09-08 10:25] LABS: ABSOLUTE EOSINOPHILS # (AUTO) 0.1 10^3/uL (0.0-0.6); ABSOLUTE LYMPHOCYTES (AUTO) 0.5 10^3/uL (0.5-4.7); ABSOLUTE MONOCYTES (AUTO) 0.4 10^3/uL (0.1-1.4); ABSOLUTE NEUT (AUTO) 5.5 10^3/uL (1.7-8.2); BASOPHILS % (AUTO) 0.1 % (0-2); EOSINOPHILS % (AUTO) 1.2 % (0-6); HEMOGLOBIN 13.3 g/dL (13.5-17.0); HGB HCT DIFFERENCE 0.9; LYMPHOCYTES % (AUTO) 7.9 % (13-45); MEAN CORPUSCULAR HEMOGLOBIN 32.6 pg (27.0-33.4); MEAN CORPUSCULAR HGB CONC 34.1 g/dL (32.0-36.0); MEAN CORPUSCULAR VOLUME 95 fl (80-97); MONOCYTES % (AUTO) 5.7 % (3-13); RED BLOOD COUNT 4.09 10^6/uL (4.35-5.55); RED CELL DISTRIBUTION WIDTH 13.9 % (11.5-14.0); SEGMENTED NEUTROPHILS % (AUTO) 85.1 % (42-78); WHITE BLOOD COUNT 6.4 10^3/uL (4.0-10.5)
[2017-09-08 10:41] LABS: ALANINE AMINOTRANSFERASE 66 U/L (21-72); ALBUMIN 3.7 g/dL (3.5-5.0); ALKALINE PHOSPHATASE 303 U/L (38-126); ANION GAP 13 (5-19); ASPARTATE AMINO TRANSFERASE 47 U/L (17-59); BILIRUBIN,DIRECT 1.1 mg/dL (0.0-0.4); BILIRUBIN,TOTAL 4.2 mg/dL (0.2-1.3); BLOOD UREA NITROGEN 13 mg/dL (7-20); CALCIUM 9.1 mg/dL (8.4-10.2); CARBON DIOXIDE 14 mmol/L (22-30); CHLORIDE 119 mmol/L (98-107); GLUCOSE 140 mg/dL (75-110); POTASSIUM 3.4 mmol/L (3.6-5.0); SODIUM 146.2 mmol/L (137-145); TOTAL PROTEIN 6.8 g/dL (6.3-8.2)
[2017-09-08] MEDS: NORMAL SALINE 1000 ML 1,000 ML IV PRN ×2 (12:53→21:39)
[2017-09-08] MEDS ORDERED: LACTULOSE SYRUP 20 GM/30 ML UDCUP PR PRN (13:29)
--- NOTE | 2017-09-08 13:44 | PDOC PROGRESS REPORT ---
Subjective Progress Note for:: 09/08/17 Subjective:: Patient has been very combative. Reason For Visit: HEPATIC ENCEPHALOPATHY Physical Exam Vital Signs: Temp Pulse Resp BP Pulse Ox 99.7 F 85 19 143/77 H 97 09/08/17 04:04 09/08/17 11:30 09/08/17 07:51 09/08/17 11:30 09/08/17 07:51 Intake & Output 09/07/17 09/08/17 09/09/17 06:59 06:59 06:59 Intake Total 2100 Output Total 525 Balance 1575 Weight 80.2 kg General appearance: PRESENT: no acute distress Eye exam: PRESENT: conjunctiva pink. ABSENT: scleral icterus Mouth exam: PRESENT: moist, tongue midline Neck exam: ABSENT: JVD Respiratory exam: PRESENT: clear to auscultation yu. ABSENT: rales, rhonchi, wheezes Cardiovascular exam: PRESENT: RRR. ABSENT: diastolic murmur, rubs, systolic murmur GI/Abdominal exam: PRESENT: normal bowel sounds, soft. ABSENT: distended, guarding, mass, organolmegaly, rebound, tenderness Extremities exam: ABSENT: calf tenderness, clubbing, pedal edema Neurological exam: PRESENT: altered Psychiatric exam: PRESENT: flat affect Skin exam: PRESENT: dry, intact, warm. ABSENT: cyanosis, rash Results Laboratory Results: 09/08/17 10:05 09/08/17 10:05 09/08/17 09/08/17 10:05 10:05 WBC 6.4 RBC 4.09 L Hgb 13.3 L Hct 39.0 MCV 95 MCH 32.6 MCHC 34.1 RDW 13.9 Plt Count 90 L Seg Neutrophils % 85.1 H Lymphocytes % 7.9 L Monocytes % 5.7 Eosinophils % 1.2 Basophils % 0.1 Absolute Neutrophils 5.5 Absolute Lymphocytes 0.5 Absolute Monocytes 0.4 Absolute Eosinophils 0.1 Absolute Basophils 0.0 Sodium 146.2 H Potassium 3.4 L Chloride 119 H Carbon Dioxide 14 L Anion Gap 13 BUN 13 Creatinine 0.90 Est GFR ( Amer) > 60 Est GFR (Non-Af Amer) > 60 Glucose 140 H Calcium 9.1 Total Bilirubin 4.2 H AST 47 ALT 66 Alkaline Phosphatase 303 H Total Protein 6.8 Albumin 3.7 Impressions: Chest X-Ray 09/07/17 09:32 IMPRESSION: LOW LUNG VOLUMES. FAINT BASILAR DENSITIES SECONDARY TO ATELECTASIS VERSUS INFILTRATE. Head CT 09/07/17 09:32 IMPRESSION: Left maxillary sinus disease with no acute intracranial findings. There is no evidence of metastases in the brain. EVIDENCE OF ACUTE STROKE: NO. Assessment & Plan - Diagnosis (1) Acute encephalopathy Is this a current diagnosis for this admission?: Yes Plan: The patient has an elevated ammonia and most likely has hepatic encephalopathy as the cause. He has no history of alcohol abuse or liver disease but has had a partial liver resection for metastatic disease. Will treat with lactulose and monitor closely. The patient had to be restrained because of agitation. Given his left lower quadrant pain I am concerned about the possibility of an intra-abdominal infection although his white count is normal. Will treat with Cipro and Flagyl. (2) Colon cancer Qualifiers: Colon location: splenic flexure Qualified Code(s): C18.5 - Malignant neoplasm of splenic flexure Is this a current diagnosis for this admission?: Yes Plan: oncology is following this patient. - Time Time Spent with patient: 25-34 minutes - Inpatient Certification Medical Necessity: Need for IV Antibiotics
[2017-09-09] MEDS ORDERED: HALOPERIDOL LACTATE INJ 5 MG/1 ML VIAL IV ONE (03:30)
[2017-09-09] MEDS: METRONIDAZOLE 500 MG/NS RTU 100 ML IV SCH (03:45)
[2017-09-09] MEDS: LACTULOSE SYRUP 20 GM/30 ML UDCUP PO SCH (05:48)
[2017-09-09 09:01] VITALS: BP 138/71
--- NOTE | 2017-09-09 13:00 | PDOC DISCHARGE SUMMARY ---
General - Admit/Disc Date/PCP Admission Date/Primary Care Provider: 09/07/17 11:23 ARIAN KASPER MD Discharge Date: 09/09/17 - Discharge Diagnosis (1) Acute encephalopathy Is this a current diagnosis for this admission?: Yes Summary: Patient's mental status has improved. He has been given some lactulose however he refused it last night. He is alert and oriented 3 however his says his personality still is not back to his usual self. (2) Colon cancer Is this a current diagnosis for this admission?: Yes Summary: Patient has metastatic disease. - Additional Information Resuscitation Status: Full Code Discharge Diet: Cardiac Discharge Activity: Activity As Tolerated Home Medications: Ondansetron HCl [Zofran 8 mg Tablet] 8 mg PO Q8HP PRN 09/07/17 Oxycodone HCl [Oxy-Ir 5 mg Tablet] 5 mg PO Q4HP PRN 09/07/17 Pantoprazole Sodium [Protonix] 40 mg PO DAILY 09/07/17 Potassium Chloride [Klor-Con 10 Meq Tablet.sa] 40 meq PO DAILY 09/07/17 Tamsulosin HCl [Flomax 0.4 mg Cap.sr] 0.4 mg PO DAILY 09/07/17 Ciprofloxacin HCl [Cipro 500 mg Tablet] 500 mg PO BID #20 tablet 09/09/17 Lactulose [Cephulac Syrup 20 gm/30 ml Udcup] 20 gm PO Q6 30 Days udc 09/09/17 Metronidazole [Flagyl 500 mg Tablet] 500 mg PO TID #30 tablet 09/09/17 History of Present Illness History of Present Illness: NATALY NGUYEN is a 57 year old male who has a history of metastatic colon cancer and history of a right sided liver resection who presents with confusion. The patient's reports that he was in his normal state of health yesterday evening when he went to bed. This morning when she tried to wake him he was confused. He was unable to get out of bed because of weakness. At the time my exam the patient is unable to give any history. She reports that he has not had any fevers or chills. He does not drink. He was recently started on pain medication by his oncologist because of worsening abdominal pain. Patient denies any pain but on exam he does have left lower quadrant abdominal pain. He has had had multiple abdominal surgeries including liver resection, cholecystectomy, gastric bypass, and a right partial colectomy. The patient prior to today had been eating normally and had no problems. He has not had any dysuria or other problems. He does not normally use lactulose but he was noted to have an elevated ammonia today. Hospital Course Hospital Course: 57-year-old gentleman who presented with hepatic encephalopathy. The patient was unresponsive. He was started on lactulose as well as Cipro and Flagyl given that he did have some left lower quadrant pain. His mental status has improved however he has become very agitated. He is refusing to take any medications and is very upset with the hospital staff. The patient on the first day refused to take his medications and he was very confused and so he was involuntarily committed to that time because he was unable to make sound decisions. The IVC has been rescinded as his mental status is back to baseline and he is competent to make decisions. The patient had negative cultures but he will be sent home on Cipro and Flagyl p.o. along with lactulose. He is noted to have metastatic colon cancer to the liver. He had a head CT that was negative for any type of metastatic disease. If this personality does not return to his usual I discussed with the that he may need an MRI of the brain however we will hold off on that as he has no focal neurological findings other than some change in his personality. Physical Exam Vital Signs: Temp Pulse Resp BP Pulse Ox 97.7 F 62 20 138/71 H 97 09/09/17 09:00 09/09/17 09:00 09/09/17 09:00 09/09/17 09:00 09/09/17 09:00 Intake & Output 09/08/17 09/09/17 09/10/17 06:59 06:59 06:59 Intake Total 2100 3088 Output Total 525 1000 Balance 1575 2088 Weight 80.2 kg 80.2 kg General appearance: PRESENT: no acute distress Eye exam: PRESENT: conjunctiva pink. ABSENT: scleral icterus Neck exam: ABSENT: JVD Psychiatric exam: PRESENT: agitated Results Laboratory Results: 09/08/17 10:05 09/08/17 10:05 Impressions: Chest X-Ray 09/07/17 09:32 IMPRESSION: LOW LUNG VOLUMES. FAINT BASILAR DENSITIES SECONDARY TO ATELECTASIS VERSUS INFILTRATE. Head CT 09/07/17 09:32 IMPRESSION: Left maxillary sinus disease with no acute intracranial findings. There is no evidence of metastases in the brain. EVIDENCE OF ACUTE STROKE: NO. Qualifiers PATEINT BEING DISCHARGED WITH ANY OF THE FOLLOWING DIAGNOSIS?: No Plan Discharge Plan: Patient is discharged home. Will follow up with his oncologist in 1 week. Time Spent: Greater than 30 Minutes
== END 2017-09-09 09:50 | disposition home or self-care (01) | DRG 442 ==
LOC: ER 09:29 → EH 11:23 → 5 16:38
PROVIDERS: ADMIT Internal Medicine; ATTEND Internal Medicine
DX: K72.90 Hepatic failure, unspecified without coma (principal); C18.5 Malignant neoplasm of splenic flexure; C78.7 Secondary malignant neoplasm of liver and intrahepatic bile duct; D69.6 Thrombocytopenia, unspecified; Z79.899 Other long term (current) drug therapy; Z90.49 Acquired absence of other specified parts of digestive tract; Z98.84 Bariatric surgery status
CPT/HCPCS: 36415; 51702; 70450; 71010; 80053; 80307; 81001; 82140; 83010; 83605; 83690; 85025; 87040; 93005; 93010; 99291; J0744; J2060; J2270; J2405; J7030

== ENCOUNTER 2017-09-18 08:26 | Day surgery (SDC) | payer MEDICARE, OTHER ==
[~2017-09-18 08:26] MED LIST: CEFAZOLIN 1 GM/D5W RTU 1 GM/50 ML RTUPB IV ONE; DEXTROSE 5%-1/2 NORMAL SALINE 1,000 ML IV PRN; DIAZEPAM 5 MG TABLET PO PRN; OXYCODONE-ACETAMINOPHEN 5-325 MG TABLET PO PRN
[2017-09-18 09:01] LABS: HEMATOCRIT 35.8 % (37.9-51.0); HEMOGLOBIN 12.4 g/dL (13.5-17.0); HGB HCT DIFFERENCE 1.4; MEAN CORPUSCULAR HEMOGLOBIN 33.1 pg (27.0-33.4); MEAN CORPUSCULAR HGB CONC 34.6 g/dL (32.0-36.0); MEAN CORPUSCULAR VOLUME 96 fl (80-97); RED BLOOD COUNT 3.74 10^6/uL (4.35-5.55); RED CELL DISTRIBUTION WIDTH 13.5 % (11.5-14.0); WHITE BLOOD COUNT 3.2 10^3/uL (4.0-10.5)
[2017-09-18] MEDS ORDERED: BACITRACIN INJ 50,000 UNIT VIAL ONE (09:04)
[2017-09-18] MEDS ORDERED: MIDAZOLAM 2 MG/2 ML INJ ONE (09:04)
[2017-09-18] MEDS ORDERED: FENTANYL CITRATE INJ/PF 100 MCG/2 ML AMPUL ONE (09:04)
[2017-09-18] MEDS ORDERED: LIDOCAINE 0.5% INJ-PF (5 MG/ML) 50 ML SDV ONE (09:04)
[2017-09-18 09:19] LABS: ANION GAP 10 (5-19); BLOOD UREA NITROGEN 13 mg/dL (7-20); CALCIUM 8.6 mg/dL (8.4-10.2); CARBON DIOXIDE 22 mmol/L (22-30); CHLORIDE 110 mmol/L (98-107); CREATININE RESULT 0.88 mg/dL (0.52-1.25); GLUCOSE 86 mg/dL (75-110); SODIUM 141.5 mmol/L (137-145)
--- NOTE | 2017-09-18 10:17 | RADIOLOGY REPORT (SQ) ---
EXAM DESCRIPTION: CHEST SINGLE VIEW COMPLETED DATE/TIME: 09/18/2017 8:49 am REASON FOR STUDY: PREOP COMPARISON: 09/07/2017 EXAM PARAMETERS: NUMBER OF VIEWS: One view. TECHNIQUE: Single frontal radiographic view of the chest acquired. RADIATION DOSE: NA LIMITATIONS: None. FINDINGS: LUNGS AND PLEURA: No opacities, masses or pneumothorax. No pleural effusion. MEDIASTINUM AND HILAR STRUCTURES: No masses. Contour normal. HEART AND VASCULAR STRUCTURES: Heart normal in size. Normal vasculature. BONES: No acute findings. HARDWARE: None in the chest. OTHER: No other significant finding. IMPRESSION: NO ACUTE RADIOGRAPHIC FINDING IN THE CHEST. TECHNICAL DOCUMENTATION: JOB ID: [id number] [employer]- All Rights Reserved
--- NOTE | 2017-09-18 11:38 | PDOC DISCHARGE SUMMARY ---
Discharge Summary (SDC) - Discharge Final Diagnosis: Liver cancer. Condition: Fair Forms: Sedation D/C Instructions, Discharge POC-Surgical Service Treatment or Instructions: Discharge home [after recovery per ASU criteria]. Diet , as tolerated, when fully awake advance as tolerated. Activities within moderation encouraged. Follow up in my office by appointment in about [1 week]. Call for appointment. Leave wounds [covered], [keep clean and dry, until office visit in 1 week]. Meds per med rec. Hold of on school/work [until evaluation in office]. May shower [in 48 hrs], [try to keep operated area as dry as possible]. Referrals: BERTHA GARRISON MD [ACTIVE STAFF] - Discharge Diet: As Tolerated Respiratory Treatments at Home: Deep Breathing/Coughing Discharge Activity: Activity As Tolerated Report the Following to Your Physician Immediately: Shortness of Breath, Unusual Bleeding
--- NOTE | 2017-09-18 11:44 | Operative Report ---
Operative Report DATE OF SURGERY: 09/18/17 PREOPERATIVE DIAGNOSIS: Liver cancer POSTOPERATIVE DIAGNOSIS: Liver cancer OPERATION: 1. Ultrasound evaluation of right internal jugular vein. 2. Insertion of Port-A-Cath via real-time access and right internal jugular vein. 3. Angiogram and interpretation. SURGEON: BERTHA ROJO WRAPPER CASHIER: None ANESTHESIA: Moderate Sedation TISSUE REMOVED OR ALTERED: Not applicable. COMPLICATIONS: None. ESTIMATED BLOOD LOSS: 5 mL. INTRAOPERATIVE FINDINGS: Of a satisfactory right internal jugular vein for use. Estimated to be about 1.2 cm in diameter. Satisfactory and safe axis. Good position with the tip of the catheter just down in the right atrium. Easy egress of blood and ingress of heparinized solution. Catheter angiogram demonstrated smooth flow of contrast through the right atrium, ventricle and pulmonary outflow tract. Hard copy of right upper chest observed. PROCEDURE: After obtaining informed consent, the patient was taken to the [operating room] and positioned supine. The [right] neck and chest were prepared with chlorhexidine and draped out with sterile linen. After the " universal timeout ", in which it was verified that the patient continued to receive antibiotic, the procedure commenced. A steriley sheathed ultrasound probe was used to evaluate the [right] internal jugular vein. Local anesthesia was infiltrated adjacent to the probe. Access into the [right] internal jugular vein was obtained using a micropuncture needle, followed by micropuncture wire and then a micropuncture catheter. This was followed by introduction of a 0.035 guidewire the tip of which was placed down into the inferior vena cava . The port sites was marked , locally anesthetized and incision made. Dissection now proceeded to the deep subcutaneous subcutaneous tissues so that a pocket for the port was made. Meticulous hemostasis was secured and the catheter was tunneled between the 2 incisions. Proximally, the catheter was now positioned using a peel-away sheath. Distally the catheter was tailored to an appropriate length and then mated to the port using the contained fixating device. The port was now placed in the pocket and the catheter optimally positioned. The port was accessed with a Robles needle and an angiogram done under digital subtraction. The findings as dictated. With adequate and satisfactory positioning, both lumens of the chamber were irrigated with heparinized solution. The wounds were now closed using interrupted 3-0 PDS to the subcutaneous tissues and a continuous subcuticular suture of 4-0 Monocryl to the skin. These are reinforced with Steri-Strips over benzoin and then dressings applied. Copies of the dictated operative report for Dr. Bertha Cutler MD.
[2017-09-18 12:38] VITALS: BP 117/70
--- NOTE | 2017-09-18 15:44 | RADIOLOGY REPORT (SQ) ---
EXAM DESCRIPTION: PORTACATH INSERTION; GUIDANCE FLUOROSCOPIC COMPLETED DATE/TIME: 09/18/2017 10:12 am; 09/18/2017 10:17 am REASON FOR STUDY: C18.2 MALIGNANT NEOPLASM OF ASCENDING COLON; T82.858A C18.2 MALIGNANT NEOPLASM OF ASCENDING COLON COMPARISON: AP chest 09/18/2017 FLUOROSCOPY TIME: 1.2 minutes 13 images saved to PACS. TECHNIQUE: Intra-operative images acquired during surgical procedure to evaluate progress. NUMBER OF IMAGES: 13 digital images LIMITATIONS: None. FINDINGS: Intra procedural imaging and fluoro during placement of a permanent central line with the tip in the superior vena cava. Please see the operative report for further details IMPRESSION: Intra procedural imaging and fluoro COMMENT: Quality ID [id number]: Final reports for procedures using fluoroscopy that document radiation exp osure indices, or exposure time and number of fluorographic images (if radiation exposure indices are not available) Please consult full operative report of the attending physician for description of the procedure. TECHNICAL DOCUMENTATION: JOB ID: [id number] [employer]- All Rights Reserved
== END 2017-09-18 11:30 | disposition home or self-care (01) ==
LOC: CCL 08:26
PROVIDERS: ATTEND Surgery
PROC: 05HM33Z Insertion of Infusion Device into Right Internal Jugular Vein, Percutaneous Approach (ICD-10-PCS; principal; 2017-09-18)
DX: C18.2 Malignant neoplasm of ascending colon (principal); Z86.718 Personal history of other venous thrombosis and embolism; Z87.442 Personal history of urinary calculi; Z79.899 Other long term (current) drug therapy
CPT/HCPCS: 36415; 85027; 80048; 36561; 76937; 77001; 71010; C1752; C1788; Q9967; J2250; J3490 ×2; J0690; J3010; J1644

== ENCOUNTER 2017-10-18 11:50 | Outpatient (CLI) | payer MEDICARE, OTHER ==
[2017-10-18] MEDS ORDERED: NORMAL SALINE 1000 ML 1,000 ML IV PRN (12:28)
[2017-10-18] MEDS ORDERED: ONDANSETRON HCL INJ/PF 4 MG/2 ML SDV IV PRN (12:30)
[2017-10-18 12:47] VITALS: BP 149/78
== END 2017-10-18 14:11 | disposition home or self-care (01) ==
LOC: II 11:50 → 5TH 12:47 → II 14:11
PROVIDERS: ATTEND Internal Medicine
PROC: 3E0437Z Introduction of Electrolytic and Water Balance Substance into Central Vein, Percutaneous Approach (ICD-10-PCS; principal; 2017-10-18)
PROC: 3E043GC Introduction of Other Therapeutic Substance into Central Vein, Percutaneous Approach (ICD-10-PCS; 2017-10-18)
DX: E86.0 Dehydration (principal); R11.0 Nausea; C18.2 Malignant neoplasm of ascending colon
CPT/HCPCS: 96375; 96360; J2405; 96361; 96374

== ENCOUNTER 2017-10-20 11:36 | Outpatient (CLI) | payer MEDICARE, OTHER ==
[~2017-10-20 11:36] MED LIST changes: -CEFAZOLIN 1 GM/D5W RTU 1 GM/50 ML RTUPB IV ONE; -DEXTROSE 5%-1/2 NORMAL SALINE 1,000 ML IV PRN; -DIAZEPAM 5 MG TABLET PO PRN; +NORMAL SALINE 1000 ML 1,000 ML IV PRN; +ONDANSETRON HCL INJ/PF 4 MG/2 ML SDV IV PRN; -OXYCODONE-ACETAMINOPHEN 5-325 MG TABLET PO PRN
[2017-10-20 12:47] VITALS: BP 142/60
== END 2017-10-20 13:10 | disposition home or self-care (01) ==
LOC: II 11:36 → 5TH 11:37 → II 13:10
PROVIDERS: ATTEND Internal Medicine
PROC: 3E0437Z Introduction of Electrolytic and Water Balance Substance into Central Vein, Percutaneous Approach (ICD-10-PCS; principal; 2017-10-20)
PROC: 3E043GC Introduction of Other Therapeutic Substance into Central Vein, Percutaneous Approach (ICD-10-PCS; 2017-10-20)
DX: E86.0 Dehydration (principal); R11.0 Nausea; C18.2 Malignant neoplasm of ascending colon
CPT/HCPCS: 96374; 96361; J2405; 96360